=== PATIENT | female | born 1990 | race Two or more races ===

== ENCOUNTER 2025-04-27 13:06 | Outpatient (AMB) | payer OTHER, MEDICAID, SELFPAY ==
--- NOTE | 2025-04-27 13:17 | MHC.OFFVIS ---
Intake Visit Reasons: B/L upper trapezius TPI & left gluteus max TPI Intake Note: Patient is a 35 year old female here today for trigger point injections Allergies No Known Allergies Allergy (Verified 04/27/25 13:18) Office Procedures AMB Trigger Point Inject - Phy Therapeutic Injection Details: Trigger point injection bilateral upper trapezius and gluteus blair : Patient was educated about the risks, complications and benefits of trigger point injection. Risks and complications include infection, nerve damage, bleeding, collapsed lung. After discussing these risks complications and benefits the patient is eager to proceed. The patient's bilateral upper trapezius muscle spasm was marked cleansed with an alcohol prep. 1 mL of 1% lidocaine was injected into each trigger point with needling. Patient tolerated the procedure well without immediate complication. The procedure was repeated on bilateral gluteus blair. [id number] Point Injection 3 or more All charges added?: Procedure code (CPT) selection complete Office Meds lidocaine (PF) 20 mg/mL (2 %) injection solution Performing Provider: CONOR Galaviz Performing Location: [facility] Administered by: CONOR Galaviz on 04/27/25 13:47 Dose Route Admin Location Dispensed Lot Number Expiration Date [facility] [place] [employer] 80 mg IM 5 mL 66080-829-69 [facility] Total Dispensed Waste 5 mL 20 % Assessment & Plan Assessment & Plan (1) Myalgia: Code(s): M79.10 - Myalgia, unspecified site Category: Medical Plan Ms. Schmidt is a 35-year-old female seen in evaluation today for bilateral upper trapezius trigger point injection. She was given post-injection instructions, recommend moist heat compresses for 15 minutes 5 times daily. Continue her home exercise plan and medications as prescribed. Follow-up with our office as needed. Orders: Orders AMB Trigger Point Injection - Physiatry Today M79.10 - Myalgia, unspecified site Coding Level of Care Code Procedure Only Diagnoses Myalgia M79.10 CPT Codes Therapeutic Injection - Ther Injection 2: [id number] Point Injection 3 or more ([id number])
--- OUTSIDE RECORDS SUMMARY | 2025-04-27 20:16 | XMS_ITS | Clinical Summary ---
Author Organization [facility] Address [address] [place] [address] Care Team Providers Care Work Checker Name Role Phone Duane Gandhi MD Primary Care Provider [phone] Allergies No known active allergies Medications PNV no.95/ferrous fum/folic ac ( ORAL) Vit-Fe Fumarate-FA (M-Miguel Plus) 27-1 MG Tab TAKE 1 TABLET BY MOUTH EVERY DAY 4 Active gabapentin (NEURONTIN) 600 mg tablet Take 1 tablet (600 mg total) by mouth 2 (two) times a day. 4 Active busPIRone (BUSPAR) 15 mg tablet Take 1 tablet (15 mg total) by mouth 3 (three) times a day. 90 each 2 5 Active Symbicort 160-4.5 mcg/actuation inhalerIndications :Moderate persistent asthma, uncomplicated INHALE 2 PUFFS BY MOUTH EVERY 12 HOURS THEN RINSE MOUTH WITH WATER/SPIT AFTER EACH DOSE 10.2 each 11 5 Active albuterol HFA (Ventolin HFA) 90 mcg/actuation inhaler Inhale 2 puffs by mouth every 6 (six) hours if needed for wheezing. 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 12/20/2022 Overview (07/17/2023): Determine if antibody is clinically relevant (known to cause hemolytic disease of the fetus or - see UpToDate) If clinically relevant and FOB known: test FOB (see below) for antigen If FOB is negative and paternity is confirmed, further assessment is unnecessary If clinically relevant and FOB unknown or positive for the antigen: Follow antibody titer (lab code: [id number]) If initial titer is 1:8 or less, monitor titer Q4 weeks For all antibodies other than Brenda, refer for MCA Dopplers and stat [facility] consult at the time of the ultrasound when titer reaches 1:16 or above For Morris, refer for MCA Dopplers for titer 1:4 To test FOB: Order in [facility]: ?Miscellaneous ref. test? and in comments write: ?antigen identification for anti-_? Must be drawn at [facility] lab If FOB positive- refer to [facility] 12/23/22 Anti E 1:16 01/04/2023 FOB Positive. Will up date [facility]. Referral back to [facility] and genetics ordered. 01/03/23 Anti E 1:32- I spoke with Dr. Acosta who recommended Crystal be seen on 02/05, sooner than previously planned due to increased titer and there will be [facility] to discuss results that day. I called Radiology who is working on this and I also called the patient to have her call if she does not hear by tomorrow. She voiced understanding and agreed. ARASELI RAE MD 01/30/2023 01/29/23 Anti E 1:16 - per [facility] 02/05/23 because the critical titer of 1:16 has been reached monthly antibody titers are not indicated or necessary 03/06/23 - Anti E negative, f/u 4 weeks for growth. No need for MCA dopplers per Dr. Ascencio. Caio Joseph, DO 05/05/23- US 21%ile, normal MCA, scheduled for follow up in 4 weeks with growth and MCA ARASELI RAE MD 01/01/2023 [facility] consult Plan 1. Detailed anatomy scan scheduled 2. MSAFP only for neural tube defect 3.Repeat Cell free DNA, if low fraction again refer to genetics- referral ordered 01/07/2023 4.If paternal tewsting positive for Anti E the following should be done: 1.Patient should be sent to genetic counseling for a [place] screening for E antigen status- ordered 01/07/2023 - low risk female, anti E antigen (results in scan) 2.Serial MCA Dopplers should be preformed every 2 weeks starting at 16 weeks 3. Antibody screening every 4 weeks 02/07/23- Irena Akins genetic consultation Last Assessment & Plan: Most recent US on 03/03/[address] Ascencio no need for MCA dopplers. 4 week f/u US for growth ordered. GDM (gestational diabetes mellitus) 12/19/2022 Overview (07/17/2023): Failed early 1 hour GTT, 3-hour WNL Failed 1h @25 weeks - 3h ordered - Dx based on elevated fasting at 27w6d 1 hour test at 24-28 wks: >140 Perform 3 hour if 1 hr >200, patient is diagnosed with GDM and does not need 3-hr GTT Forward chart to P [id number] ([facility]) Diabetic teaching and visit with diabetic provider (Jarod or Mili) - Mili 04/28/23 Nutrition - Georgette Mane RD on 04/29/23 4 times per day testing (fasting and 2 hour postprandial) to be reviewed weekly Goals: fasting <95, 2 hr PP <120 If > or = 1/3 elevated, send to diabetic provider for insulin therapy Serial growth ultrasounds after diagnosis Manganese Breaker on shoulder dystocia Deliver by 40 6/7 weeks 2 hour GTT at 6-12 weeks PP leave on problem list as ?history of? and add to overview recommendation for Q 1-3 year GTT with PCP Obesity in 12/18/2022 Overview (07/17/2023): BMI: 35 Recommended Weight Gain: 11-20 pounds HgbA1C and 1 hour GTT at initial lab Hgb A1C 5.9. Failed early 1 hr gtt 159- 3 hour ordered. ASA 162mg at 12 weeks until delivery Detailed anatomy ultrasound Repeat GTT 24-28 weeks if early is normal Pre-preg BMI 35-39.9: NST weekly at 37 weeks Pre-preg BMI >40: NST weekly at 34 weeks Pre-preg BMI >45: NST weekly at 32 weeks Growth US at 32 and 36 weeks for BMI >40 BMI of 50 by 28wks [place] [facility] [place]VT prophylaxis- Lovenox if CS and BMI >35 Asthma 11/15/2022 Overview (07/17/2023): Public Information Specialist Dr. Michaud Last Assessment & Plan: Having persistent cough, has f/u with pulm in 2 weeks Bipolar 2 disorder 10/02/2018 Overview (07/17/2023): Buspar ordered 3 x a day but takes it as needed. No therapist in place. 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 12/27/2022 feels stable with buspar as needed. No therapist in place feels stable, denies hx of depression. Resolved Problems Problem Noted Date Diagnosed Date Resolved Date Elevated blood pressure reading 11/15/2022 12/17/2024 Overview (07/17/2023): 11/15/2022 at establishing care visit. No dx with HTN, but monitored by PCP was told it is situational. Encounters Date Type Department Care Team Description 03/18/2025 2:07 PM EDT - 03/18/2025 11:59 PM EDT Hospital Encounter Radiology Department - [address] [address] Radiculopathy, lumbar region; Myalgia, other site Discharge Disposition: Home or Self Care from Last 3 Months Immunizations Immunization Administration Dates Next Due Influenza Quadravalent, MDCK , 0.5ml, with preservative (Flucelvax) 6mo and older 02/21/2023 Influenza Quadrivalent, 0.5m l, preservative free (Fluarix; FluLaval; Fluzone) ages 6mo and older (Afluria) 3yo and older 02/21/2023 Influenza trivalent, 0.5mL, preservative free (Fluarix; FluLaval; Fluzone) ages 6mo and older (Afluria) 3 years and older 03/29/2016 Influenza trivalent, MDCK, 0 .5mL, preservative free (Flucelvax) 6mo and older 02/25/2025,02/20/2024 Pneumococcal conjugate 20 va lent (Prevnar 20, PCV 20) 2mo and older 08/27/2024 Tdap Tetanus diptheria acell ular pertussis (Boostrix; Adacel) 7yo and older 04/17/2023,01/09/2015,01/03/2011 Surgical History Surgery Date Site/Laterality Comments KIDNEY STONE SURGERY CYSTOSCOPY LITHOTRIPSY Medical History Medical History Date Comments Bipolar disorder ([facility] V2 4, [facility] V28) DX:Bipolar disorder (HCC) Mild intermittent asthma, uncomplicated DX:Mild intermittent asthma, uncomplicated DX: Esophageal reflux DX:Esophageal reflux History of diet controlled g estational diabetes mellitus (GDM) 2023 DX:History of diet controlle d gestational diabetes mellitus (GDM) PONV (postoperative nausea and vomiting) Shortness of breath Anxiety Depression Family History Medical History Relation Name Comments No Known Problems Brother Other: brain tumor Father Alcohol abuse Maternal Grandfather Diabetes Maternal Grandfather Hyperlipidemia Maternal Grandfather Hypertension Maternal Grandfather Diabetes Maternal Grandmother Hyperlipidemia Maternal Grandmother Hypertension Maternal Grandmother No Known Problems Paternal Grandfather No Known Problems Paternal Grandmother No Known Problems Sister Breast cancer Neg Hx Prostate cancer Neg Hx Relation Name Status Comments Brother Alive Father Maternal Grandfather Alive Maternal Grandmother Alive Mother Alive Paternal Grandfather Paternal Grandmother Sister Alive Social History Tobacco Use Types Packs/Day Years Used Date Smoking Tobacco: Former Cigarettes 0 Q uit: 11/14/2020 Passive Smoke Exposure: Past Smokeless Tobacco: Never Tobacco Cessation:Counseling Given: Not Answered Alcohol Use Standard Drinks/Week Comments Not Currently 0 (1 standard drink = 0.6 oz pur e alcohol) Housing Instability Answer Date Recorde d Are you worried that in the next 2 months you may not have stable housing? No 08/26/2024 Food Access & Nutrition Answer Date Rec orded Do you have access to a vari ety of food including fruits and vegetables? Yes 08/26/2024 Access to Healthcare Answer Date Record ed Within the last 3 months, ho w many times did you visit the emergency department for your medical care? 0 08/26/2024 Health Literacy Answer Date Recorded How often do you need to hav e someone help you when you read instructions, pamphlets, or other written material from your doctor or pharmacy? Never 08/26/2024 Caregiver: How often do you need to have someone help you when you read instructions, pamphlets, or other written material from your doctor or pharmacy? Not on file 08/26/2024 Financial Risk Answer Date Recorded How hard is it for you to pa y for the very basics like food, housing, medical care, and air conditioning / heating? Somewhat hard 08/26/2024 Transportation Answer Date Recorded Has the lack of transportati on kept you from meetings, work, or from getting things needed for daily living? No Has the lack of transportati on kept you from medical appointments or from getting medications? No 08/26/2024 Social Isolation Answer Date Recorded How often do you feel lonely or isolated from those around you? Sometimes 08/26/2024 Food Risk Answer Date Recorded Within the past 12 months we worried whether our food would run out before we got money to buy more. Patient declined 025 Within the past 12 months th e food we bought just didn't last and we didn't have money to get more. Patient declined 08/17 Dependent Care Answer Date Recorded Do you need help finding or paying for care for your loved ones. For example, childbirth and infant care teacher or elderly care for an older adult? No 08/26/2024 Education Answer Date Recorded Do you think completing more education or training, like finishing a GED, going to college, or learning a trade, would be helpful for you? No 08/26/2024 Employment and Income Answer Date Recor ded During the last four weeks, have you been actively looking for work? No 08/26/2024 Living Situation Answer Date Recorded What is your living situation? Unrecognized valu e 08/26/2024 Comments No Sex and Gender Information Value Date Recorded Sex Assigned at Female 04/10/2024 6:24 PM EST Legal Sex Female 6:34 AM EDT Gender Identity Female 04/10/2024 6:24 PM EST Sexual Orientation Straight 04/10/2024 6: 24 PM EST Last Filed Vital Signs Vital Sign Reading Time Taken Comments Blood Pressure 124/82 12/17/2024 11:01 AM EDT Pulse 69 12/17/2024 11:01 AM EDT Temperature 36.4 C (97.6 F) 12/17/2024 11:01 AM EDT Respiratory Rate 20 12/17/2024 11:01 AM EDT Oxygen Saturation 100% 12/17/2024 11:01 AM EDT Inhaled Oxygen Concentration - - Weight 93.9 kg (207 lb) 12/17/2024 11:01 AM EDT Height 167.6 cm (5' 6 ) 12/17/2024 11:01 AM EDT Body Mass Index 33.41 12/17/2024 11:01 AM EDT Plan of Treatment Upcoming Encounters Date Type Department Care Team (Late st Contact Info) Description 06/23/2025 9:30 AM EST Office Visit Bariatric Surgery - [place] [facility] [address] [place] [phone] Surekha Bailey PA [address] [place] [phone] 07/01/2025 2:00 PM EST Office Visit Pulmonology - [place] [address] [facility] [address] [place] [phone] Ashely Michaud MD [address] [place] [phone] 11/24/2025 8:00 AM EDT Office Visit Endocrinology - [address] [phone] Bobo Spaulding MD [address] [place] [phone] Health Maintenance Due Date Last Done Comments Hepatitis B Vaccines (1 of 3 - 19+ 3-dose series) 2009 HPV Vaccines (1 - 3-dose SCDM series) 2017 Social Influencers of Health Screening 08/26/2025 08/26/2024 Cervical Cancer Screening: HPV 12/28/2027 12/27/2022 Cholesterol Screening (Lipid Panel) 08/27/2029 08/27/2024, 02/13/2024, 02/13/2024 DTaP,Tdap,and Td Vaccines (4 - Td or Tdap) 04/17/2033 04/17/2023, 01/09/2015, 01/03/2011 RSV Immunization Adult Patients (1 - 1-dose 75+ series) 2065 Depression Screening Completed 08/26/2024, 02/19/20 Pneumococcal Vaccine: Pediatrics (0 to 5 Years) and At-Risk Patients (6 to 49 Years) Completed 08/27/2024 HIV Screening Completed 09/10/2024, 12/18/2022 Hepatitis C Screening Completed 09/10/2024, 023 COVID-19 Vaccine Completed 02/25/2025, 08/2023, 06/07/2023, Additional history exists Influenza Vaccine Completed 02/25/2025, , 02/21/2023, Additional history exists HIB Vaccines Aged Out No longer eligi ble based on patient's age to complete this topic Hepatitis A Vaccines Aged Out No long er eligible based on patient's age to complete this topic IPV Vaccines Aged Out No longer eligi ble based on patient's age to complete this topic MMR Vaccines Aged Out No longer eligi ble based on patient's age to complete this topic Meningococcal ACWY Vaccine Aged Out N o longer eligible based on patient's age to complete this topic Meningococcal B Vaccine Aged Out No l onger eligible based on patient's age to complete this topic RSV Immunization Patients Under 20 months Aged Out No longer eligible based on patient's age to complete this topic Varicella Vaccines Aged Out No longer eligible based on patient's age to complete this topic Procedures Procedure Name Priority Date/Time Associated Diagnosis Comments MR LUMBAR SPINE WO CONTRAST Routine 03/18/2025 3:17 PM EDT Radiculopathy, lumbar region Myalgia, other site HEPATITIS C ANTIBODY Routine 09/10/2024 10:[address] EDT [address] chest [address] HIV 1, 2 ANTIBODY, P24 ANTIGEN WITH REFLEX TO DIFFERENTIATION Routine 09/10/2024 10:28 AM EDT Ab[address] chest CT LIPID PANEL WITH REFLEX TO DIRECT LDL Routine 08/27/2024 12:45 PM EDT Screening for hyperlipidemia HM DEPRESSION SCREENING Routine 02/19/2024 HM HPV Routine 12/27/2022 from Last 3 Months or Most Recently Relevant to Health Maintenance Results * MR Lumbar Spine wo Contrast (03/18/2025 3:17 PM EDT) Anatomical Region Laterality Modality L-spine, Spine Magnetic Resonan ce 03/18/2025 3:49 PM EDT Impressions 03/22/2025 9:00 AM EST Multilevel bony and discogenic degenerative changes as described. No focal nerve root compression. -------- FINAL REPORT -------- Dictated By: Aleyda Cloud Dictated Date: 03/18/2025 16:49 ET Assigned Physician: Aleyda Cloud Reviewed and Electronically Signed By: Aleyda Cloud Signed Date: 03/22/2025 09:00 ET Workstation ID: [id number] Transcribed By: Self Edit Transcribed Date: 03/18/2025 16:50 ET Narrative 03/22/2025 9:00 AM EST MR LUMBAR SPINE WO CONTRAST MR OF THE LUMBAR SPINE WITHOUT CONTRAST HISTORY: Chronic left-sided low back pain. Technique: MR of the lumber spine was performed without contrast utilizing the standard departmental protocol. COMPARISON: None. FINDINGS: Conus medullaris terminates at the [L1] level, and demonstrates normal signal. There is no abnormal thickening or clumping of the cauda equina nerve roots. There is normal alignment of the lumbar spine. Vertebral body heights are normal. Marrow signal is normal. At T12-L1, no significant disc herniation, central spinal canal stenosis or neuroforaminal narrowing is demonstrated on the sagittal sequences. At L1-L2, no significant disc herniation, central spinal canal stenosis or neuroforaminal narrowing. At L2-L3, no significant disc herniation, central spinal canal stenosis or neuroforaminal narrowing. At L3-L4, there is disc desiccation. There is mild disc bulging with mild bilateral lateral disc bulging and small posterior central disc bulge/protrusion and associated tear of the annulus. No neural foraminal narrowing or central canal stenosis. At L4-L5, there is disc desiccation. There is disc bulging with small posterior central disc bulge/protrusion and associated tear of the annulus. No neural foraminal narrowing or central canal stenosis. At L5-S1, there is disc desiccation. There is disc bulging with broad-based posterior central disc protrusion/bulge with associated tear of the annulus. No neural foraminal narrowing or central canal stenosis. Procedure Note Aleyda Cloud MD - 03/22/2025 MR LUMBAR SPINE WO CONTRAST MR OF THE LUMBAR SPINE WITHOUT CONTRAST HISTORY: Chronic left-sided low back pain. Technique: MR of the lumber spine was performed without contrast utilizingthe standard departmental protocol. COMPARISON: None. FINDINGS: Conus medullaris terminates at the [L1] level, and demonstratesnormal signal. There is no abnormal thickening or clumping of the caudaequina nerve roots. There is normal alignment of the lumbar spine.Vertebral body heights are normal. Marrow signal is normal. At T12-L1, no significant disc herniation, central spinal canal stenosisor neuroforaminal narrowing is demonstrated on the sagittal sequences. At L1-L2, no significant disc herniation, central spinal canal stenosis orneuroforaminal narrowing. At L2-L3, no significant disc herniation, central spinal canal stenosis orneuroforaminal narrowing. At L3-L4, there is disc desiccation. There is mild disc bulging with mildbilateral lateral disc bulging and small posterior central discbulge/protrusion and associated tear of the annulus. No neural foraminalnarrowing or central canal stenosis. At L4-L5, there is disc desiccation. There is disc bulging with smallposterior central disc bulge/protrusion and associated tear of theannulus. No neural foraminal narrowing or central canal stenosis. At L5-S1, there is disc desiccation. There is disc bulging withbroad-based posterior central disc protrusion/bulge with associated tearof the annulus. No neural foraminal narrowing or central canal stenosis. IMPRESSION: Multilevel bony and discogenic degenerative changes as described. No focalnerve root compression. -------- FINAL REPORT -------- Dictated By: Aleyda Cloud Dictated Date: 03/18/2025 16:49 ET Assigned Physician: Aleyda Cloud Reviewed and Electronically Signed By: Aleyda Cloud Signed Date: 03/22/2025 09:00 ET Workstation ID: [id number] Transcribed By: Self Edit Transcribed Date: 03/18/2025 16:50 ET us Artur PERDOMO IMG MRI PROCEDURES Final Resul t * Hepatitis C antibody (09/10/2024 10:28 AM EDT) Hepatitis C Antibody Negative Negative LAB CHEMISTRY METHOD 09/10/2024 2:31 PM EDT [facility] Blood Venous blood specimen / Unknown Venipuncture / Unknown 09/10/2024 10:28 AM EDT 09/10/2024 11:12 AM EDT Ashely Michaud MD LAB BLOOD ORDERABLES Final Resul t [facility] [address] [place] [address], * HIV 1,2 antibody, p24 antigen with reflex to differentiation (09/10/2024 10:28 AM EDT) HIV Combo AB/AG Negative Negative LAB CHEMISTRY METHOD 09/10/2024 2:32 PM EDT [facility] Blood Venous blood specimen / Unknown Venipuncture / Unknown 09/10/2024 10:28 AM EDT 09/10/2024 11:12 AM EDT Narrative [facility] - 09/10/2024 2:32 PM EDT This assay is a 4th generation assay allowing for earlier detection of HIV infection by detecting the presence of the HIV-1 p24 antigen as well as the traditional antibodies to HIV type 1 (including group O) and type 2. Use of a 4th generation assay is the current CDC recommendation for HIV screening. Ashely Michaud MD LAB BLOOD ORDERABLES Final Resul t Performing Organization Address City/[facility]/ZIP Co de Phone Number [facility] [address] [place] [address], [place] [phone] * (ABNORMAL) Lipid panel with reflex to direct LDL (08/27/2024 12:45 PM EDT) Pathologist [facility] Cholesterol 196 0 - 200 mg/dL LAB CHEMISTRY METHOD 08/27/2024 2:48 PM EDT [facility] Triglycerides 176(H) 0 - 150 mg/dL LAB CHEMISTRY METHOD 08/27/2024 2:48 PM EDT [facility] HDL 42 >=40 mg/dL LAB CHEMISTRY METHOD 08/27/2024 2:48 PM EDT [facility] LDL Calculated 119(H) 0 - 100 mg/dL LAB CHEMISTRY METHOD 08/27/2024 2:48 PM EDT [facility] VLDL Cholesterol Denzel 35.2 mg/dL LAB CHEMISTRY METHOD 08/27/2024 2:48 PM EDT [facility] Non HDL Chol. (LDL+VLDL) 154(H) <145 mg/dL LAB CHEMISTRY METHOD 08/27/2024 2:48 PM EDT [facility] Chol/HDL Ratio 4.7(H) 0.0 - 4.4 LAB CHEMISTRY METHOD 08/27/2024 2:48 PM EDT [facility] Blood Venous blood specimen / Unknown Venipuncture / Unknown 08/27/2024 12:45 PM EDT 08/27/2024 12:45 PM EDT Duane Gandhi MD LAB BLOOD ORDERABLES Final Res ult Performing Organization Address [facility]/ZIP Co de Phone Number [facility] [address] [place] [address], [place] [phone] * Hm Depression Screening (02/19/2024) Depression Screening abstracted Historical Provider HEALTH MAINTENANCE Final Result * Cervical Cancer Screening: HPV (12/27/2022) Cervical Cancer Screening: HPV normal, abstracted Historical Provider HEALTH MAINTENANCE Final Result from Last 3 Months or Most Recently Relevant to Health Maintenance Insurance [facility] MEDICAID - [place] Care Teams Work Checker Relationship Specialty Start Date End Date Duane Gandhi MD [address] [place] [phone] PCP - General Internal Medicine 04/12/24
--- OUTSIDE RECORDS SUMMARY | 2025-04-27 20:16 | XMS_ITS | Clinical Summary ---
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 Role Phone Dahiana Colon MD Primary Care Provider Social History Tobacco Use Types Packs/Day Years Used Date Smoking Tobacco: Never Assessed Sex and Gender Information Value Date Recorded Sex Assigned at Female 02/07/2023 1:38 PM EDT Gender Identity Female 02/07/2023 1:38 PM EDT Sexual Orientation Not on file Job Start Date Occupation Industry Not on file Not on file Not on file Plan of Treatment Health Maintenance Due Date Last Done Comments Hepatitis B Vaccines (1 of 3 - 3-dose series) 1990 Hepatitis C Screening 1990 COVID-19 Vaccine (#1) 1990 Depression Screening 2002 Preventative Health Evaluation 2008 Cervical Cancer Screening (P ap Smear) 2011 DTap / Tdap / Td (2 - Td or Tdap) 01/03/2021 011 Influenza Vaccine (#1) 2025 Pneumococcal Vaccine Aged Out No long er eligible based on patient's age to complete this topic RSV Ped < 20 months Aged Out No longe r eligible based on patient's age to complete this topic Care 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
--- OUTSIDE RECORDS SUMMARY | 2025-04-27 20:16 | XMS_ITS ---
Author Name [facility] Organization Unknown Encounters Encounter Type Encounter Reason Primary Diagnosis Location [place] [facility] [place] Organization Name Specialty Phone Email Start Date End Da te [facility] DAHIANA FAROOQ Primary Care 02/07/20232022 [facility] Dahiana Farooq MD Primary Care 10/25/2022 01/05/2024 [facility] Kenisha Brownlee Primary Care 08/20/20222023 [facility] RICHRAD GAONA Primary Care 03/26/20222023
== END 2025-04-27 13:44 | disposition home or self-care (01) ==
LOC: HO.HPHYS 13:06
PROVIDERS: PCP Internal Medicine; Visit Provider Physician Assistant
DX: M79.10 Myalgia, unspecified site (principal)
CPT/HCPCS: 20553

== ENCOUNTER → 2025-04-27 13:06 | Outpatient (BNVA) | payer OTHER, MEDICAID, SELFPAY | PROVIDERS: PCP Internal Medicine; Visit Provider Physician Assistant | DX: M79.10 Myalgia, unspecified site (principal) | CPT/HCPCS: 20553; J2003 ==